=== PATIENT | female | born 1995 | race African-American/Black ===

== ENCOUNTER 2017-06-12 16:02 | Emergency (ER) | payer MEDICAID ==
[~2017-06-12] VITALS: Ht 170.2 cm; Wt 120.0 kg
[2017-06-12] MEDS ORDERED: KETOROLAC 60MG/2ML VIAL IM ONE (21:45)
[2017-06-12 21:49] LABS: CLARITY URINE CLEAR (CLEAR); COLOR URINE YELLOW (YELLOW); KETONES URINE TRACE (NEGATIVE); LEUKOCYTE ESTERASE URINE NEGATIVE (NEGATIVE); NITRITE URINE NEGATIVE (NEGATIVE); OCCULT BLOOD URINE NEGATIVE (NEGATIVE); PROTEIN URINE NEGATIVE (NEGATIVE); SPECIFIC GRAVITY URINE 1.035 (1.005-1.030); UROBILINOGEN URINE 0.2 E.U./dL (0.2-1.0)
[2017-06-13 05:37] VITALS: BP 109/61
== END 2017-06-13 05:30 | disposition home or self-care (01) ==
LOC: ER 16:49
DX: S09.90XA Unspecified injury of head, initial encounter (principal); J45.909 Unspecified asthma, uncomplicated; V49.88XA Car occupant (driver) (passenger) injured in other specified transport accidents, initial encounter; Y93.89 Activity, other specified; Y92.89 Other specified places as the place of occurrence of the external cause; Y99.8 Other external cause status
CPT/HCPCS: 70450; 70486; 71046; 81003; 81025; 96372; 99285; J1885

== ENCOUNTER 2022-05-11 07:57 | Emergency (ER) | payer MEDICAID, OTHER ==
[~2022-05-11] VITALS: Ht 170.2 cm; Wt 118.0 kg
[2022-05-11 08:05] VITALS: BP 126/84
[2022-05-11] MEDS ORDERED: ONDANSETRON 4MG ODT PO ONE (08:30)
[2022-05-11 09:51] LABS: BASOPHILS % 0.2 % (0.0-2.0); HEMATOCRIT. 38.7 % (36.0-48.0); HEMOGLOBIN. 12.5 g/dL (12.0-16.0); LYMPHOCYTES % 14.8 % (20.0-50.0); MEAN CORPUSCULAR HEMOGLOBIN 25.9 pg (28.0-32.0); MEAN CORPUSCULAR VOLUME 80.1 fL (81.0-99.0); MEAN PLATELET VOLUME 8.7 fl (7.4-10.4); MONOCYTES % 6.5 % (2.0-8.0); NEUTROPHILS % 76.5 % (40.0-76.0); PLATELET 282 x1000/uL (130-400); RED BLOOD CELL COUNT 4.83 mill/uL (4.2-5.4)
[2022-05-11 09:51] LABS: CLARITY URINE CLOUDY (CLEAR); COLOR URINE YELLOW (YELLOW); KETONES URINE TRACE (NEGATIVE); LEUKOCYTE ESTERASE URINE 2+ (NEGATIVE); NITRITE URINE NEGATIVE (NEGATIVE); OCCULT BLOOD URINE 3+ (NEGATIVE); PH URINE 6.5 (4.5-8.0); PROTEIN URINE 1+ (NEGATIVE); SPECIFIC GRAVITY URINE 1.023 (1.005-1.030); UROBILINOGEN URINE 0.2 E.U./dL (0.2-1.0)
[2022-05-11 09:59] LABS: CHLORIDE 105 mEq/L (98-107)
[2022-05-11 10:21] LABS: B-HCG QUANTITATIVE 35911 mIU/mL (<3)
[2022-05-11] MEDS ORDERED: NITR-87 MT ×2 (10:46)
[2022-05-13] MEDS ORDERED: ONDANSETRON 4MG ODT PO NR (10:30)
[2022-05-13] MEDS ORDERED: NITR100C PO (11:35)
== END 2022-05-11 11:30 | disposition home or self-care (01) ==
LOC: ER 07:57
DX: O20.0 Threatened abortion (principal); O23.41 Unspecified infection of urinary tract in pregnancy, first trimester; N39.0 Urinary tract infection, site not specified; O26.891 Other specified pregnancy related conditions, first trimester; J45.909 Unspecified asthma, uncomplicated; Z3A.13 13 weeks gestation of pregnancy
CPT/HCPCS: 36415; 76801; 80053; 81003; 81025; 84702; 85025; 86850; 86900; 99284; Q0162